=== PATIENT | female | born 1975 | race Caucasian/White ===

== ENCOUNTER 2018-10-04 06:54 | Day surgery (SDC) | payer BC, SELFPAY ==
[2018-10-04 07:14] LABS: Hematocrit 41.2 % (37-47); Hemoglobin 13.3 g/dl (12.0-15.0); Mean Corp Hgb Conc 32.3 g/gl (32-36); Mean Corpuscular Hgb 28.6 pg (27.0-32.0); Mean Corpuscular Volume 88.6 fL (81-99); Mean Platelet Vol. 9.1 fl (6.2-12.0); Platelet Count 320 K/mm3 (150-450); RBC Distribution Width CV 15.1 % (11.6-14.6); RBC Distribution Width SD 48.8 fl (35.1-43.9); Red Blood Count 4.65 M/mm3 (4.2-5.4)
[2018-10-04 07:16] LABS: Internal QC Validated? YES +Cl - CLEAR BKGD; Pregnancy, Urine Negative Negative
[2018-10-04 07:17] LABS: Scan Indicated on CBC? Y/N NO
[2018-10-04 07:18] VITALS: BP 152/78; PULSE 73; RESP 16; TEMP 37.1; O2SAT 100; BMI 23.8
--- NOTE | 2018-10-04 08:25 | EMB_PTH ---
PATIENT: TOM GARCIA LOC: [facility] – [place], [place] U#:[id number] AGE/SX: 43/F ROOM: RE10/04/[address]: Dr. Akosua Cabrera, MDDOB: 1975 BED: DIS: 10/04/2018 SPEC #: [id number] RECD: 10/04/18 10:42 STATUS: MAURICIO RETiffani #: [id number] ENUICE: 10/04/18 08:[address]: Akosua Cabrera DEPT: SURGICAL PATHOLOGY RECD BY: Shant Thomas ENTERED: 10/04/18 11:12 SP TYPE: ENDOM BX/C OTHR DR: Dr. 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 AM:margy 10/05/18 MICROSCOPIC DESCRIPTION Slides are reviewed. GROSS DESCRIPTION Received in fixative is one container labeled with the patient's name and designated endometrial curettings. The specimen consists of multiple irregular fragments of pink-red soft tissue that in aggregate measure 3 x 2.5 x 0.3 cm. The specimen is totally submitted in one cassette. / SJ:margy 10/04/18 TC:5 CPT: 71899
--- NOTE | 2018-10-04 08:36 | DCINST_ITS ---
Discharge Diet: No Restrictions Discharge Activity: Return to Normal Activity, May Shower, May Take a Tub Bath - in 2 weeks. May resume sexual activity in: 1 week Call your doctor if you observe: Fever of 101 or Higher, Using more than one pad per hour Allergies/Adverse Reactions: Allergies No Known Allergies Allergy (Verified 10/02/18 10:51) Medications to take at Discharge Iron Carbonyl [Feosol] 65 mg PO BID 10/02/18 Norethindrone Acetate 5 mg PO BID 10/02/18 Primary Care Physician: Shima Conley [Primary Care Provider] - Test Results: Test results from this visit will be discussed in further detail at your follow- up appointment, if applicable. Please Follow Up With: Akosua Cabrera MD When: as scheduled for post op
--- NOTE | 2018-10-04 08:58 | PCM.OPRPT ---
Report of Operation Date of Procedure: 10/04/18 Pre-Operative Diagnosis: AUB, endometrial polyp Post-Operative Diagnosis: AUB Surgery/Procedure Performed:: Hysteroscopy, D&C Description of Surgical Findings:: Tubal ostia visulized. No polyps noted- areas of thickened endometrium Type of Anesthesia:: MAC Specimen's removed: endometrial curettings Drains: none Estimated Blood Loss (mL): <5cc Fluids Replaced: 500 Description of Procedure: Informed consent was obtained the patient was taken the operating room she was placed in supine position. She was given anesthesia. She was then placed in the [facility] an acute care hospital where she was prepped and draped in the normal sterile fashion. bladder drained 150cc urine. At this time the weighted speculum was placed in the posterior fornix of vagina. Single-tooth tenaculum was used to gently grasp the anterior lip the cervix. At this time the uterine cavity was sounded to approximately 10 cm. Gentle dilatation was performed once adequate dilatation of the cervix was achieved the hysteroscope using normal saline as a distention medium was placed. abundant Endometrial tissue . Otherwise no gross abnormalities. Tubal ostia visualized. This time hysteroscopy was complete. Sharp curettage was performed. Moderate amount of endometrial tissue removed. This will be sent to pathology for evaluation. Procedure was deemed complete successful there are no complications. Anticipated normal postoperative course. Instrument lap count correct ?2. Vaginal Sweep was negative. Grafts/Implants Used: none - Complications none - Admit VTE Documentation VTE Present on Admission: Yes VTE Mechan Device Prophylaxis: SCD's VTE Pharm Prophylaxis ordered?: No
--- NOTE | 2018-10-04 09:01 | OP.PCM_ITS ---
Report of Operation Date of Procedure: 10/04/18 Pre-Operative Diagnosis: AUB, endometrial polyp Post-Operative Diagnosis: AUB Surgery/Procedure Performed:: Hysteroscopy, D&C Description of Surgical Findings:: Tubal ostia visulized. No polyps noted- areas of thickened endometrium Type of Anesthesia:: MAC Specimen's removed: endometrial curettings Drains: none Estimated Blood Loss (mL): <5cc Fluids Replaced: 500 Description of Procedure: Informed consent was obtained the patient was taken the operating room she was placed in supine position. She was given anesthesia. She was then placed in the [facility] where she was prepped and draped in the normal sterile fashion. bladder drained 150cc urine. At this time the weighted speculum was placed in the posterior fornix of vagina. Single-tooth tenaculum was used to gently grasp the anterior lip the cervix. At this time the uterine cavity was sounded to approximately 10 cm. Gentle dilatation was performed once adequate dilatation of the cervix was achieved the hysteroscope using normal saline as a distention medium was placed. abundant Endometrial tissue . Otherwise no gross abnormalities. Tubal ostia visualized. This time hysteroscopy was complete. Sharp curettage was performed. Moderate amount of endometrial tissue removed. This will be sent to pathology for evaluation. Procedure was deemed complete successful there are no complications. Anticipated normal postoperative course. Instrument lap count correct ?2. Vaginal Sweep was negative. Grafts/Implants Used: none - Complications none - Admit VTE Documentation VTE Present on Admission: Yes VTE Mechan Device Prophylaxis: SCD's VTE Pharm Prophylaxis ordered?: No
[2018-10-04 09:06] VITALS: BP 152/78; BP 169/97; PULSE 74; RESP 16; TEMP 36.8; O2SAT 97
[2018-10-04 09:11] VITALS: BP 152/78; BP 170/93; PULSE 74; RESP 16; O2SAT 97
[2018-10-04 09:16] VITALS: BP 152/78; BP 166/89; PULSE 68; RESP 16; O2SAT 100
[2018-10-04 09:23] VITALS: BP 152/78; BP 160/85; PULSE 62; RESP 17; TEMP 36.9; O2SAT 100
[2018-10-04 10:22] VITALS: BP 152/78
== END 2018-10-04 10:24 | disposition home or self-care (01) ==
LOC: SDC 06:54 → AC 06:56
PROVIDERS: Family Provider Internal Medicine; PCP Internal Medicine; Referring Provider Obstetrics & Gynecology; Visit Provider Obstetrics & Gynecology
PROC: 0UB98ZZ Excision of Uterus, Via Natural or Artificial Opening Endoscopic (ICD-10-PCS; CPT 58558; principal; 2018-10-04 08:10)
DX: N85.00 Endometrial hyperplasia, unspecified (principal); D64.9 Anemia, unspecified
CPT/HCPCS: 58558; 36415; 81025; 85027; 88305; J7120

== ENCOUNTER 2021-03-16 12:51 | Emergency (ER) | payer OTHER, SELFPAY ==
[2021-03-16 12:52] VITALS: BP 140/78; PULSE 78; RESP 18; TEMP 37.2; O2SAT 96; BMI 23.0
--- NOTE | 2021-03-16 13:18 | EKG12_ITS ---
Test Reason : CHEST OTHER Blood Pressure : / mmHG Vent. Rate : 065 BPM Atrial Rate : 065 BPM P-R Int : 152 ms QRS Dur : 076 ms QT Int : 404 ms P-R-T Axes : 066 067 059 degrees QTc Int : 420 ms Normal sinus rhythm Normal ECG Confirmed by ISABEL LOCK, CARLO ([id number]), school photograph editor MICHELLE ALLEN ([id number]) on 03/19/2021 11:30:02 A M Referred By: TAB Confirmed By:DO HALL MD
--- NOTE | 2021-03-16 13:18 | RAD_ITS ---
STUDY: X-RAY CHEST REASON FOR EXAM: Female, 45 years old. Chest pain TECHNIQUE: Single AP portable view of the chest. COMPARISON: None. FINDINGS: EKG leads overlie the chest The lungs are clear and expanded. There is no demonstrated pleural abnormality. Normal size heart. Normal mediastinum and enrique. Normal visualized pulmonary arteries. Normal visualized aortic arch and descending thoracic aorta. Normal visualized thoracic spine. Normal visualized ribs, clavicles, and shoulders. There is no demonstrated abnormality of the visualized soft tissue structures of the upper abdomen. RAD/Chest 1 View (Portable) IMPRESSION: Normal x-ray examination of the chest. Electronically Signed: Mu Clements MD at 14:15 EDT , Service support ,
[2021-03-16 13:49] VITALS: BP 124/68; PULSE 65; RESP 15; O2SAT 99
[2021-03-16 13:55] LABS: Absolute Lymphocyte Count 0.92 X10^3/uL (0.83-4.51); Absolute Neutrophil Count 4.9 X10^3/uL (2.0-7.7); Basophil# 0.02 X10^3/uL; Basophil% 0.3 % (0-1); Eosinophil# 0.04 X10^3/uL; Eosinophils% 0.6 % (0-5); Hematocrit 37.5 % (37-47); Hemoglobin 12.7 g/dL (12.0-15.0); Lymphocyte # 0.92 X10^3/ul (0.83-4.51); Lymphocyte % 14.2 % (19-41); Mean Corp Hgb Conc 33.9 g/dL (32-36); Mean Corpuscular Hgb 29.1 pg (27.0-32.0); Mean Platelet Vol. 9.5 fl (6.2-12.0); Monocyte# 0.55 X10^3/uL; Monocyte% 8.5 % (0-10); NRBC Flagged by Analyzer 0 % (0-5); Neutrophil % 75.6 % (47-70); Platelet Count 340 K/mm3 (150-450); RBC Distribution Width CV 13.3 % (11.6-14.6); Red Blood Count 4.36 M/mm3 (4.2-5.4); White Blood Count 6.5 K/mm3 (4.4-11.0)
[2021-03-16 13:59] LABS: ALB/GLOB Ratio 0.9 RATIO (0.9-2.4); AST(SGOT) 9 U/L (15-37); Alanine Aminotransfer ALT/SGPT 22 U/L (13-56); Albumin, Serum 3.3 g/dL (3.2-5.0); Alkaline Phosphatase 68 U/L (45-117); Anion Gap 5 (5-15); BUN 18 mg/dL (7-18); BUN/Creat Ratio 20.7 RATIO (10-20); Calcium,Total 8.9 mg/dL (8.5-10.1); Chloride 108 mmol/L (98-107); Creatinine, Serum 0.87 mg/dL (0.55-1.02); D-Dimer Quantitative (DVT/PE) 1.38 FEU/ug/m (0.27-0.49); EST Glomerular Filtration Rate 74 mL/min (>60); Est Glom Filt Rate - Afr Amer 90 mL/min (>60); Estimated Creatinine Clearance 60.32 ml/min; Globulin 3.6 g/dL (2.2-4.2); Glucose 114 mg/dL (74-106); Potassium 3.7 mmol/L (3.5-5.1); Protein, Total 6.9 g/dL (6.4-8.2); Sodium Level 141 mmol/L (136-145)
--- NOTE | 2021-03-16 14:02 | CT_ITS ---
STUDY: CTA CHEST REASON FOR EXAM: Female, 45 years old. Postop hysterectomy abnormal D-dimer RADIATION DOSAGE (If Supplied By Facility): CTDIvol = ( 8.08 ) mGy, DLP = ( 653.96 ) mGycm TECHNIQUE: The examination was performed with the intravenous administration of IV 100mL Isovue-370. Post-processing of the angiographic images was performed, with multiplanar reformation and 3D reconstruction. Individualized dose optimization techniques were used for this CT. COMPARISON: None. FINDINGS: Low-density filling defect noted within branches leading to the right lower lobe consistent with PE. No other demonstrated filling defects. Normal thoracic aorta and visualized great vessels. There is no demonstrated aortic dissection. Normal heart and pericardium. Normal mediastinum. Normal hilar regions. Normal visualized trachea and bronchi. The lungs are well expanded. Normal pulmonary parenchyma. Normal pleura. Normal chest wall structures. Normal osseous structures. Normal visualized upper abdomen. CT/CTA Chest W/WO Contrast IMPRESSION: Filling defect noted within a branch leading to the right lower lobe best seen on axial images 67-81. This is consistent with right lower lobe PE. No other PE noted. No acute pulmonary process Findings called to the emergency room physician prior to dictation Electronically Signed: Mu Clements MD at 14:55 EDT , Service support ,
--- NOTE | 2021-03-16 14:04 | CT_ITS ---
STUDY: CT ABDOMEN AND PELVIS WITH CONTRAST REASON FOR EXAM: Female, 45 years old. RUQ PAIN, S/P HYSTER RADIATION DOSAGE (If Supplied By Facility): CTDIvol = ( 8.08 ) mGy, DLP = ( 653.96 ) mGycm TECHNIQUE: Transaxial images were obtained from the dome of the diaphragm to the symphysis pubis without oral contrast. IV 100mL Isovue-370 was administered. Sagittal and coronal images were reconstructed. Individualized dose optimization techniques were used for this CT. COMPARISON: None. FINDINGS: The visualized lung bases are unremarkable. The visualized portions of the heart are within normal limits. Normal liver. There are multiple gallstones. Normal spleen. Normal pancreas. Normal bilateral adrenal glands. Normal right kidney. Normal left kidney. Normal visualized stomach. Normal small intestine. Retained stool noted in the colon. The appendix is visualized and appears normal. Appendix seen on coronal recon images 63 through 71 Normal abdominal aorta. Normal inferior vena cava. Normal retroperitoneum. Normal urinary bladder. There is absence of the uterus consistent with a prior hysterectomy. Normal abdominal wall. Normal osseous structures. CT/Abdomen/Pelvis W IV Cont ONLY IMPRESSION: No suspicious solid organ abnormality, cholelithiasis without CT evidence of acute cholecystitis Retained stool throughout the colon No free peritoneal fluid, air, or suspicious adenopathy Normal appendix visualized Electronically Signed: Mu Clements MD at 14:47 EDT , Service support ,
[2021-03-16 14:25] VITALS: BP 134/74; PULSE 67; RESP 14; O2SAT 100
[2021-03-16 14:45] LABS: Lipase 173 U/L (73-393)
[2021-03-16 14:47] LABS: Mucous, Urine 0 SEEN /hpf (<or=2+); Red Blood Cells-Urine 0 SEEN /hpf (0-5)
[2021-03-16 14:51] LABS: Color, Urine Yellow (Yellow); Glucose, Dipstick Normal (Normal); Ketone-Dipstick Negative (Negative); Leukocyte Esterase-Dipstick 500 /ul (Negative); Nitrite-Dipstick Positive (Negative); Occult Blood-Urine 150 /ul (Negative); Protein-Dipstick Negative (Negative); Urine Bilirubin Dipstick Negative (Negative); Urine Clarity Cloudy (Clear); Urine Urobilinogen Normal (Normal)
--- NOTE | 2021-03-16 14:56 | EDS_ITS ---
HPI History of Present Illness Chief Complaint: Chest Other Narrative Narrative: Patient is 2-week status post a vaginal hysterectomy uncomplicated indicates she basically immediately postop began having a pain to the right lower subcostal margin that she describes as the size of a quarter the symptom persisted worse when she takes a deep breath or moves she spoke with her ENVIRONMENTAL SERVICES AIDE team today and asked to come to the hospital to be evaluated, she has had no fever no cough no vaginal bleeding she feels well bowel bladder habits are unremarkable, she has no history of cardiovascular sort or pneumonia PE AK or any GI liver or gallbladder abnormalities PFSH PFS Medical History (Updated 03/16/21 @ 15:[address] Anuj Lancaster MD) Hypothyroidism Home Medications iron, carbonyl [Feosol] 65 mg PO BID 10/02/18 [History Last Taken Unknown] norethindrone acetate 5 mg PO BID 10/02/18 [History Last Taken Unknown] apixaban [Eliquis DVT-PE Treat 30D Start] 10 mg PO BID 7 Days #28 tab 03/16/21 [Rx Last Taken Unknown] Allergy/AdvReac Type Severity Reaction Status Date / Time No Known Allergies Allergy Verified 03/16/21 12:54 Surgical History (Updated 03/16/21 @ 13:51 by Susan Cantu) H/O: hysterectomy Social History Smoking Status: Never smoker ROS ROS ED Constitutional Constitutional ED: Reports subjective, sweats and other; Denies chills, fever(s) or weight loss Eyes Eyes: Denies blurry vision or change in vision ENT ENT ED: Denies ear pain Cardiovascular Cardiovascular: Denies chest pain or palpitations Respiratory/Chest Respiratory/Chest: Denies dyspnea Gastrointestinal Gastrointestinal: Reports abdominal pain; Denies nausea or vomiting Genitourinary Genitourinary ED: Denies dysuria or hematuria Musculoskeletal Musculoskeletal: Denies arthralgias or myalgias Integumentary Reports rash; Denies abscess Neurologic Neurologic: Denies weakness Psychiatric Psychiatric: Denies anxiety or depression Endocrine Endocrinology: Denies polydipsia or polyuria Allergic/Immunologic Allergic/Immunologic ED: Denies urticaria EXAM Physical Exam Narrative Exam Narrative: Patient's exam is as below her vital signs are unremarkable she has a very vague discomfort to the right subcostal margin there is no specific focal abdominal discomfort, she indicates this area of discomfort is about the size of a quarter given all the above ED evaluation Const Vital Signs: 03/16/21 12:52 03/16/21 13:49 03/16/21 14:25 Temperature 98.9 F Temperature Source Temporal Pulse Rate 78 65 67 Respiratory Rate 18 15 14 Blood Pressure 140/78 H 124/68 H 134/74 H Blood Pressure Mean 98 86 94 Pulse Ox 96 99 100 Oxygen Delivery Method Room Air Room Air Room Air Positive well developed General Appearance ED: well developed HEENT Reports normocephalic Negative for trauma Eyes EOMs intact bilaterally Neck supple Chest Wall inspection of chest normal Resp normal respiratory effort Cardio regular rate GI non-tender and non-distended Back/Spine Back/Spine Narrative: unremarkable Extremity normal to inspection Neuro oriented x3 and CN's II-XII intact bilaterally Sensorium / Orientation: alert Psych mental status grossly normal Skin no rashes or lesions noted MDM MDM MDM Narrative Medical decision making narrative: Patient's EKG shows sinus rhythm rate 65 nothing acute, all screening labs are generally unremarkable see those reports, chest x-ray 1 view to my review shows nothing acute she was sent for CTA abdominal CT as a D-dimer was elevated slightly, the abdominal CT nothing acute see those reports, CTA chest per radiology shows what appears to be distal PE involving the right lower lobe, discussed this with her discussed any risk factors she might have to anticoagulation she does not have any no GI bleeding no head trauma, she is not on nonsteroidals, she will avoid them, spoke with Dr. Gonzalez pulmonary agrees discharge on Eliquis starter pack is appropriate she can follow-up with the office or to arrange for follow-up versus her following up with her PCP who is in [place] I have explained this to her and she understands and agrees and will return for change in symptoms she understands she might require the Eliquis therapy for an extended period of time and hence need for follow-up she develops any of the symptoms bleeding shortness of breath she will return, and she assures me she feels fine for outpatient management please also note the patient did have UTI urine culture was sent she was started on Keflex, we also did page Dr. Roman her ENVIRONMENTAL SERVICES AIDE to make them aware of the above and review the care management with them, call back is pending when they call back we will review the above Disposition Home stable Final impression peripheral right lower lobe pulmonary embolism, 2-week status post vaginal hysterectomy Lab Data Labs: Laboratory Results - last 24 hr 03/16/21 03/16/21 03/16/21 13:33 13:33 13:33 WBC 6.5 RBC 4.36 Hgb 12.7 Hct 37.5 MCV 86.0 MCH 29.1 MCHC 33.9 RDW Std Deviation 42.0 RDW Coeff of Segundo 13.3 Plt Count 340 MPV 9.5 Immature Gran % (Auto) 0.800 Neut % (Auto) 75.6 H Lymph % (Auto) 14.2 L [place] % (Auto) 8.5 Eos % (Auto) 0.6 Baso % (Auto) 0.3 Absolute Neuts (auto) 4.9 Absolute Lymphs (auto) 0.92 Nucleated RBC % 0 D-Dimer Quant (PE/DVT) 1.38 H* Sodium 141 Potassium 3.7 Chloride 108 H Carbon Dioxide 28.0 Anion Gap 5 BUN 18 Creatinine 0.87 Estim Creat Clear Calc 60.32 Est GFR (MDRD) Af Amer 90 Est GFR (MDRD) Non-Af 74 BUN/Creatinine Ratio 20.7 H Glucose 114 H Calcium 8.9 Total Bilirubin 0.30 AST 9 L ALT 22 Alkaline Phosphatase 68 Troponin I < 0.015 Total Protein 6.9 Albumin 3.3 Globulin 3.6 Albumin/Globulin Ratio 0.9 Lipase Urine Color Urine Clarity Urine pH Ur Specific [place] Urine Protein Urine Glucose (UA) Urine Ketones Urine Occult Blood Urine Nitrite Urine Bilirubin Urine Urobilinogen Ur Leukocyte Esterase Urine RBC Urine WBC Ur Squamous Epith Cells Ur Renal Epithelial Cell Urine Bacteria Urine Mucus 03/16/21 03/16/21 13:33 14:40 WBC RBC Hgb Hct MCV MCH MCHC RDW Std Deviation RDW Coeff of [place] Plt Count MPV Immature Gran % (Auto) Neut % (Auto) Lymph % (Auto) [place] % (Auto) Eos % (Auto) Baso % (Auto) Absolute Neuts (auto) Absolute Lymphs (auto) Nucleated RBC % D-Dimer Quant (PE/DVT) Sodium Potassium Chloride Carbon Dioxide Anion Gap BUN Creatinine Estim Creat Clear Calc Est GFR (MDRD) Af Amer Est GFR (MDRD) Non-Af BUN/Creatinine Ratio Glucose Calcium Total Bilirubin AST ALT Alkaline Phosphatase Troponin I Total Protein Albumin Globulin Albumin/Globulin Ratio Lipase 173 Urine Color Yellow Urine Clarity Cloudy Urine pH 7.0 Ur Specific [place] 1.010 Urine Protein Negative Urine Glucose (UA) Normal Urine Ketones Negative Urine Occult Blood 150 H Urine Nitrite Positive H Urine Bilirubin Negative Urine Urobilinogen Normal Ur Leukocyte Esterase 500 H Urine RBC 0 SEEN Urine WBC 25-50 SEEN Ur Squamous Epith Cells 0-5 SEEN Ur Renal Epithelial Cell 0-5 SEEN Urine Bacteria 4+ Urine Mucus 0 SEEN Radiography Diagnostic Testing: Radiology Impression Chest X-Ray 03/16/21 13:18 IMPRESSION: Normal x-ray examination of the chest. Electronically Signed: Mu Clements MD at 14:15 EDT , Service support , Chest CTA 03/16/21 14:02 IMPRESSION: Filling defect noted within a branch leading to the right lower lobe best seen on axial images 67-81. This is consistent with right lower lobe PE. No other PE noted. No acute pulmonary process Findings called to the emergency room physician prior to dictation Electronically Signed: Mu Clements MD at 14:55 EDT , Service support , Abdomen/Pelvis CT 03/16/21 14:04 IMPRESSION: No suspicious solid organ abnormality, cholelithiasis without CT evidence of acute cholecystitis Retained stool throughout the colon No free peritoneal fluid, air, or suspicious adenopathy Normal appendix visualized Electronically Signed: Mu Clements MD at 14:47 EDT , Service support , Discharge Plan Triage Chief Complaint: Chest Other ED Provider: Anuj Lancaster Dx/Rx/DC Orders Clinical Impression: Pulmonary embolism Instructions: Pulmonary Embolism Prescriptions: New Eliquis DVT-PE Treat 30D Start 5 mg (74 tabs) tablets,dose pack 10 mg PO BID 7 Days Qty: 28 RF: 0 No Action norethindrone acetate 5 MG tablet 5 mg PO BID RF: 0 iron, carbonyl [Feosol] 45 MG capsule 65 mg PO BID RF: 0 Primary Care Provider: Zeynep Colin Referrals: Vishal Gonzalez MD [STAFF PHYSICIAN] - Colin,Zeynep D, MACHINE FILLER SHREDDER-C [Primary Care Provider] - Activity Restrictions/Additional Instructions: Follow-up with your primary care doctor or Dr. Gonzalez's office which ever is available soonest take the Eliquis 10 mg twice a day for 7 days and then on day 8 take 5 mg twice daily through day 30
[2021-03-16 15:10] LABS: White Blood Cells 25-50 SEEN /hpf (0-5)
[2021-03-16 15:11] LABS: Bacteria 4+ /hpf (None Seen); Renal Epithelial Cells 0-5 SEEN /hpf (0-5); Squamous Epithelial Cells - UA 0-5 SEEN /hpf (5-10)
--- NOTE | 2021-03-16 16:20 | ED.RN ---
keflex 500mg po 4xday x 7 days #28 was written into pt eliquis script per dr moore.
[2021-03-16] MEDS: APIXABAN 5 MG TABLET 10 MG PO (16:23)
[2021-03-16] MEDS: Cephalexin 250 MG Capsule 500 MG PO (16:23)
[2021-03-16 16:29] VITALS: BP 142/78; PULSE 74; RESP 16; O2SAT 98
== END 2021-03-16 16:32 | disposition home or self-care (01) ==
LOC: ED 13:42
PROVIDERS: Emergency Provider Emergency Medicine; PCP Nurse Practitioner Family
DX: I26.99 Other pulmonary embolism without acute cor pulmonale (principal); N39.0 Urinary tract infection, site not specified; Z90.710 Acquired absence of both cervix and uterus
CPT/HCPCS: 71045; 71275; 74177; 80053; 81001; 83690; 84484; 85025; 85379; 87086; 87088; 87186; 93005; 99283; J7040; Q9967